=== PATIENT | female | born 1980 | race Native Hawaiian/Other Pacific Islander ===

== ENCOUNTER 2022-03-19 08:03 | Emergency (ER) | payer OTHER ==
[~2022-03-19] VITALS: Ht 157.5 cm; Wt 43.5 kg
[2022-03-19 08:07] VITALS: BP 137/110; TEMP 98.4
== END 2022-03-19 08:46 | disposition home or self-care (01) ==
LOC: ED 08:03
DX: M54.89 Other dorsalgia (principal); V89.2XXA Person injured in unspecified motor-vehicle accident, traffic, initial encounter; Y92.89 Other specified places as the place of occurrence of the external cause
CPT/HCPCS: 96372; 99283; J1885; J2360

== ENCOUNTER 2022-09-27 11:33 | Emergency (ER) | payer OTHER ==
[~2022-09-27] VITALS: Ht 154.9 cm; Wt 49.9 kg
[2022-09-27 11:39] VITALS: BP 99/60; TEMP 98.1
== END 2022-09-27 12:20 | disposition home or self-care (01) ==
LOC: ED 11:33
DX: H92.02 Otalgia, left ear (principal); H66.92 Otitis media, unspecified, left ear
CPT/HCPCS: 99283